=== PATIENT | female | born 1985 | race African-American/Black ===

== ENCOUNTER 2017-10-20 22:42 | Emergency (ER) | payer SELFPAY ==
[2017-10-20 22:56] LABS: Bilirubin Negative (Negative); Blood, Urine Negative (Negative); Clarity Clear (Clear); Glucose, Urine (Dipstick) Negative (Negative); Leukocyte Negative (Negative); Nitrite Negative (Negative); Protein, Urine (Dipstick) Trace mg/dL (Neg-Trace); Urobilinogen 0.2 mg/dL (0.2-1.0)
[2017-10-20 22:57] LABS: Specific Gravity, Urine 1.023 (1.002-1.036)
[2017-10-20 22:58] LABS: Pregnancy Test - Urine (BHCG) Negative (Negative); Pregu Control Background? CLEAR/WHITE (CLR/WHITE); Pregu Control Bar Appear? YES (CONTROL BAR); Specific Gravity 1.023 (1.002-1.036)
[2017-10-20] MEDS ORDERED: Morphine 4 MG/ML Carpuject ONE (23:11)
[2017-10-20] MEDS ORDERED: Ondansetron HCl/PF 4 MG/2 ML Vial ONE (23:11)
[2017-10-20 23:41] LABS: ALT (SGPT) 18 U/L (8-55); AST (SGOT) 13 U/L (5-34); Albumin 4.1 g/dL (3.5-5.0); Alkaline Phosphatase 128 U/L (40-150); Anion Gap 13 mmol/L (10-20); BUN (Urea Nitrogen) 17 mg/dL (7.0-18.7); Bilirubin, Total 0.2 mg/dL (0.2-1.2); Calc. Creatinine Clearance 0 mL/min (70-130); Calcium 9.5 mg/dL (7.8-10.44); Carbon Dioxide 24 mmol/L (22-29); Chloride 106 mmol/L (98-107); Estimated GFR-MDRD Greater than 90; Globulin 3.5 g/dL (2.4-3.5); Glucose 138 mg/dL (70-105); Lipase 31 U/L (8-78); Potassium 3.4 mmol/L (3.5-5.1); Protein, Total 7.6 g/dL (6.0-8.3); Sodium 140 mmol/L (136-145)
[2017-10-21 00:05] LABS: #Basophils 0.1 thou/uL (0.0-0.2); #Eosinphils 0.2 thou/uL (0.0-0.7); #Lymphocytes 2.6 thou/uL (1.20-3.40); #Monocytes 0.3 thou/uL (0.11-0.59); #Neutrophils 3.7 thou/uL (1.40-6.50); %Basophils 1.1 % (0.0-1.0); %Eosinophils 2.8 % (0.0-10.0); %Lymphocytes 38.3 % (21.0-51.0); %Monocytes 4.3 % (0.0-10.0); %Neutrophils 53.5 % (42.0-75.0); Hemoglobin 11.8 g/dL (12.0-16.0); Mean Corpuscular HGB CONC 32.3 g/dL (32.0-36.0); Mean Corpuscular Hemoglobin 20.3 pg (27.0-31.0); Mean Corpuscular Volume 62.8 fl (81.0-99.0); Mean Platelet Volume 14.2 fL (7.4-10.4); Platelet Count 192 thou/uL (130-400); RBC Distribution Width 13.7 % (11.5-14.5); Red Blood Cell (RBC) Count 5.82 mill/uL (4.20-5.40); White Blood Cell (WBC) Count 6.9 thou/uL (4.8-10.8)
[2017-10-21 00:06] LABS: Anisocytosis SLIGHT = 6-15 cells (100X) (0-5/hpf); Microcytosis SLIGHT = 6-15 cells (100X) (0-5/hpf); Small Platelets SLIGHT
[2017-10-21 00:07] LABS: Ovalocytes SLIGHT = 2-5 cells (100X) (0-1/hpf)
[2017-10-21] MEDS ORDERED: Azithromycin 250 MG TAB ONE (00:21)
[2017-10-21] MEDS ORDERED: metroNIDAZOLE 250 MG TAB ONE (00:21)
[2017-10-21] MEDS ORDERED: Lidocaine 1% 20 ML MDV ONE (00:22)
[2017-10-21] MEDS ORDERED: cefTRIAXone\\ROCEPHIN 500 MG VIAL ONE (00:22)
--- NOTE | 2017-10-21 08:41 | CT ---
PRELIMINARY REPORT/[facility]/EMERGENTY AFTER-HOURS PROCEDURE CT Abdomen and Pelvis With Intravenous Contrast CLINICAL HISTORY: 31 years old, female; Pain; Abdominal pain; Other: Flank &llq; Patient HX: Onset l flank into llq are a pain TECHNIQUE: Axial computed tomography images of the abdomen and pelvis with intravenous contrast. COMPARISON: No relevant prior studies available. FINDINGS: Lung bases: Normal. No mass. No consolidation. ABDOMEN: Liver: 6 minimally low attenuation focus within the periphery of the posterior segment right hepatic lobe, likely simple cyst. Mild hepatomegaly. Gallbladder and bile ducts: Normal. Pancreas: Normal. Spleen: Normal. Adrenals: Normal. Kidneys and ureters: Normal. Stomach and bowel: Few loops of nondilated, gas and fluid-filled small bowel, which is a nonspecific finding, but can be seen with enteritis. PELVIS: Appendix: Appendix is normal. Bladder: Normal. Reproductive: 3.8 cm cystic structure within the left adnexa, likely left ovarian cyst. ABDOMEN and PELVIS: Intraperitoneal space: Normal. No free air. No significant fluid collection. Bones/joints: No acute fracture. No dislocation. Soft tissues: Normal. Vasculature: Normal. No abdominal aortic aneurysm. Lymph nodes: Normal. IMPRESSION: 1. 3.8 cm cystic structure within the left adnexa, likely left ovarian cyst. 2. Few loops of nondilated, gas and fluid-filled small bowel, which is a nonspecific finding, but can be seen with enteritis. 3. Incidental/non-acute findings are described above. Thank you for allowing us to participate in the care of your patient. Dictated and Authenticated by: Matty Deluca MD 10/21/2017 12:29 AM Central Time ([place] & [place]) FINAL REPORT CT ABDOMEN AND PELVIS WITH CONTRAST: DATE: 10/20/17. FINDINGS: Spiral CT of the abdomen and pelvis was performed for evaluation of flank and left lower quadrant yamila n. Axial slices were initially obtained, then coronal and sagittal reconstructions were done. The lung bases are clear. The liver, spleen, pancreas, adrenal glands, kidneys, and abdominal aorta were all unremarkable in appearance. The bowel was nondistended with no sign of obstruction. Some nondilated fluid-filled loops of small bowel are present, a nonspecific finding, but sometimes indicative of enteritis. The appendix appear s normal. There is no free air or free fluid. CT of the pelvis was significant for a 4.7 cm cystic structure in the left adnexa, most likely an ova keo cyst of some variety. There was no free fluid in the pelvis. No adenopathy of concern was seen . An incidental finding on this study was a tiny 6 mm hypodensity in the peripheral right lobe of the l iver, probably a tiny cyst. IMPRESSION: 1. A 4.7 cm cystic structure, left adnexa. Presumed to be an ovarian cyst. A followup ultrasound i s recommended. 2. Nonspecific fluid-filled loops of small bowel as stated above. Report in agreement with preliminary reading by [facility]. POS: HOME
[2017-10-24 03:20] LABS: Chlamydia by PCR Not Detected (NotDetected); GC by PCR Not Detected (NotDetected)
== END 2017-10-21 00:39 | disposition home or self-care (01) ==
LOC: BURERS 22:42
DX: N72 Inflammatory disease of cervix uteri (principal); F41.9 Anxiety disorder, unspecified; F32.9 Major depressive disorder, single episode, unspecified
CPT/HCPCS: 74177; 80053; 81003; 81025; 83690; 85025; 85652; 87480; 87491; 87510; 87591; 87660; 96361; 96372; 96374; 96375; J0696; J2001; J2270; J2405

== ENCOUNTER 2018-04-09 08:05 | Emergency (ER) | payer SELFPAY ==
[2018-04-09] MEDS ORDERED: Ibuprofen 800 MG TAB ONE (08:36)
[2018-04-09] MEDS ORDERED: HYDROcodone/Acetaminophen 5/325 mg Tablet ONE (08:36)
--- NOTE | 2018-04-09 20:28 | RAD ---
CHEST TWO VIEWS: 04/09/18 Comparison is made with the prior study of 10/05/14. The heart is normal in size. The mediastinum shows no widening or shift. The lungs are fully inflated and clear. There are no effusions. No fractures were appreciated. IMPRESSION: No acute thoracic finding. POS: HOME
== END 2018-04-09 09:09 | disposition home or self-care (01) ==
LOC: BURERS 08:05
DX: S20.212A Contusion of left front wall of thorax, initial encounter (principal); F41.9 Anxiety disorder, unspecified; F32.9 Major depressive disorder, single episode, unspecified; W01.198A Fall on same level from slipping, tripping and stumbling with subsequent striking against other object, initial encounter
CPT/HCPCS: 71046